=== PATIENT | male | born 1990 | race Caucasian/White ===

== ENCOUNTER 2017-08-05 19:05 | Emergency (ER) | payer BC ==
[~2017-08-05] VITALS: Ht 182.9 cm; Wt 89.0 kg
[2017-08-05 19:31] VITALS: BP 140/62; PULSE 92; RESP 18; TEMP 98.7; O2SAT 96
[2017-08-05] MEDS ORDERED: TEST1KIT IM (19:44)
--- NOTE | 2017-08-05 19:57 | PD ---
HPI Chief Complaint: Skin Problem Time Seen by Provider: 19:37 Travel History International Travel<30 days: No Contact w/Intl Traveler<30days: No Traveled to known affect area: No History of Present Illness HPI 27-year-old male presents to emergency Department with complaint of pain, swelling and redness to the right buttocks that has developed over the last 3-4 days after injecting testosterone 2-1/2 weeks ago. He said he reused his own dirty needle. Denies fever, vomiting. Has tried using Biofreeze for symptom management. Has not taken any medications to alleviate his symptoms. Pain is aggravated with palpation and sitting. Describes pain as a pressure. Rates pain 6/10. No known allergies. Has no medical complaints. No other modifying factors or associated signs and symptoms. PFSH Past Medical History Medical History: Denies Significant Hx Hx Anticoagulant Therapy: No Depression: Yes Cardiovascular Problems: No Chemotherapy: No Cerebrovascular Accident: No Diabetes: No Diminished Hearing: No Respiratory: No Immunizations Current: No Tetanus Vaccination: < 5 Years Influenza Vaccination: No Past Surgical History Ear Surgery: Yes (BILATERAL TUBES TO EARS A CHILD) Eye Surgery: Yes (BILATERAL EYES LAS2013) Hysterectomy: No Tonsillectomy: Yes Tympanostomy Tube: Yes Social History Alcohol Use: Yes ([facility]) Tobacco Use: Yes Substance Use: No Allergies-Medications (Allergen,Severity, Reaction): Coded Allergies: No Known Allergies (Unverified Adverse Reaction, Unknown, 08/05/17) Reported Meds & Prescriptions Reported Meds & Active Scripts Active Reported Testone Cik Inj (Testosterone Cypionate) 200 Mg/Ml Kit 300 Mg IM Q7DAYS Review of Systems Except as stated in HPI: all other systems reviewed are Neg Physical Exam Narrative GENERAL: Well-nourished, well-developed male patient, in no acute distress; afebrile, nontoxic-appearing SKIN: There is an indurated area to the right upper buttock which measures about 3.4 cm in diameter. It is nonfluctuant and there is no pointing or drainage. There is an area of mild erythema to the area. HEAD: Atraumatic. Normocephalic. EYES: Pupils equal and round. No scleral icterus. No injection or drainage. ENT: Mucosa pink and moist. Airway patent. NECK: Trachea midline. CARDIOVASCULAR: Regular rate. RESPIRATORY: No accessory muscle use. GASTROINTESTINAL: Flat. MUSCULOSKELETAL: No obvious deformities. No clubbing. No cyanosis. No edema. NEUROLOGICAL: Awake and alert. Oriented 3. No obvious cranial nerve deficits. Motor grossly within normal limits. Normal speech. PSYCHIATRIC: Appropriate mood and affect; insight and judgment normal. Data Data Last Documented VS Vital Signs Date Time Temp Pulse Resp B/P (MAP) Pulse Ox O2 Delivery O2 Flow Rate FiO2 08/05/17 19:45 (88) 08/05/17 19:31 98.7 92 18 96 Orders Orders Us Soft Tissue (08/05/17 ) MDM Medical Decision Making Medical Screen Exam Complete: Yes Emergency Medical Condition: Yes Medical Record Reviewed: Yes Differential Diagnosis Abscess, hematoma, cellulitis Narrative Course 27-year-old male with a palpable indurated area to the right upper buttocks. Dr. Iyer did a bedside ultrasound and there was no obvious abscess noted. Soft tissue of the right buttocks ordered. I offered the patient pain medication and he declined. 2055: AMA: The risks of leaving against medical advice without further evaluation treatment were discussed with the patient. These risks include cardiac dysfunction, cardiac dysrhythmia, possible heart attack, possible stroke or . The patient indicated understanding of these risks and appeared to have the capacity to make this decision. Diagnosis Primary Impression: Left against medical advice Disposition: 07 AGAINST MEDICAL ADVICE Izabella Martin Aug 05, 2017 19:57
--- NOTE | 2017-08-05 21:08 | PD ---
Physical Exam Date Seen by Provider: Aug 05, 2017 Time Seen by Provider: 21:07 Narrative Patient is a 27-year-old male who was initially evaluated by the mid-level provider. The patient had an area of swelling and minimal tenderness to the right gluteal area after injecting testosterone 2 weeks ago. He denies any fever, chills, or sweats. I was asked to perform a bedside ultrasound to evaluate for possible abscess. Data Data Last Documented VS Vital Signs Date Time Temp Pulse Resp B/P (MAP) Pulse Ox O2 Delivery O2 Flow Rate FiO2 08/05/17 19:45 (88) 08/05/17 19:31 98.7 92 18 96 Orders Orders Us Soft Tissue (08/05/17 ) MDM Medical Record Reviewed: Yes Supervised Visit with TARIK: Yes Differential Diagnosis Differential diagnosis includes hematoma, abscess, scar tissue, seroma, medication side effect. Narrative Course Eyes asked to perform a bedside ultrasound to evaluate for abscess over the right gluteal area after the patient injected testosterone 2 weeks ago. Bedside ultrasound a linear probe revealed no obvious abscess. Therefore, formal ultrasound was ordered. Procedures Procedure Narrative A bedside ultrasound was performed using a linear probe which revealed no obvious abscess. The patient tolerated the procedure without difficulty and there is no obvious complications. Diagnosis Primary Impression: Left against medical advice Additional Instruction: Warm compresses to the affected area Keep area clean and dry Ibuprofen or Tylenol as directed and as needed for pain and inflammation Follow-up with primary care provider Return to emergency department immediately with worsening of symptoms Disposition: 07 AGAINST MEDICAL ADVICE Condition: Stable Glenn Iyer MD Aug 05, 2017 21:08
--- NOTE | 2017-08-05 21:21 | RADRPT ---
EXAM DATE/TIME: 08/05/2017 20:16 [facility] COMPARISON: No previous studies available for comparison. INDICATIONS : Right buttock swelling and pain. MEDICAL HISTORY : Depression. SURGICAL HISTORY : Tonsillectomy. Left finger fracture repair. Bilateral lasik surgery. Bilateral tympanostomy tubes . ENCOUNTER: Initial ACUITY: 1 day PAIN SCORE: 5/10 LOCATION: Right buttock AREA EVALUATED: Right buttock. FINDINGS: Umaña scale and Doppler ultrasound imaging demonstrates mild subcutaneous edema. No fluid collection o r solid mass is identified. CONCLUSION: Subcutaneous edema. No fluid collection or abscess is identified. Vinny Lozano MD on August 05, 2017 at 21:18 Board Certified Radiologist. This report was verified electronically.
== END 2017-08-05 20:50 | disposition left against medical advice (07) ==
LOC: PHEFT 19:05
DX: R22.2 Localized swelling, mass and lump, trunk (principal); L53.9 Erythematous condition, unspecified; R23.4 Changes in skin texture; M79.1 Myalgia; Z72.0 Tobacco use; Z53.20 Procedure and treatment not carried out because of patient's decision for unspecified reasons
CPT/HCPCS: 76999; 99284

== ENCOUNTER 2017-08-24 17:26 | Emergency (ER) | payer BC ==
[~2017-08-24] VITALS: Ht 182.9 cm; Wt 90.4 kg
[~2017-08-24 17:26] MED LIST: TEST1KIT IM
[2017-08-24 17:34] VITALS: BP 142/63; PULSE 93; RESP 16; TEMP 98.2; O2SAT 99
[2017-08-24] MEDS ORDERED: CLIN300C5 PO (18:21)
--- NOTE | 2017-08-24 18:21 | PD ---
HPI Chief Complaint: Skin Problem Time Seen by Provider: 18:15 Travel History International Travel<30 days: No Contact w/Intl Traveler<30days: No Traveled to known affect area: No History of Present Illness HPI This is a 27-year-old male with a tender erythematous area to his right buttocks. He reports the area originated as a hard lump on his right gluteal at the site of where he injects steroids. The area just recently became red and increasingly more tender over the last week. He denies fever or chills. He denies history of MRSA. Symptom severity is moderate. No alleviating factors. PFSH Past Medical History Hx Anticoagulant Therapy: No Depression: Yes Cardiovascular Problems: No Chemotherapy: No Cerebrovascular Accident: No Diabetes: No Diminished Hearing: No Respiratory: No Immunizations Current: No Tetanus Vaccination: < 5 Years Influenza Vaccination: No Past Surgical History Ear Surgery: Yes (BILATERAL TUBES TO EARS A CHILD) Eye Surgery: Yes (BILATERAL EYES 2013) Hysterectomy: No Tonsillectomy: Yes Tympanostomy Tube: Yes Social History Alcohol Use: Yes (occ) Tobacco Use: Yes Substance Use: No Allergies-Medications (Allergen,Severity, Reaction): Coded Allergies: No Known Allergies (Unverified Adverse Reaction, Unknown, 08/24/17) Reported Meds & Prescriptions Reported Meds & Active Scripts Active Clindamycin (Clindamycin HCl) 300 Mg Cap 300 Mg PO Q6H 10 Days Reported Testone Cik Inj (Testosterone Cypionate) 200 Mg/Ml Kit 300 Mg IM Q7DAYS Review of Systems Except as stated in HPI: all other systems reviewed are Neg General / Constitutional: No: Fever Gastrointestinal: No: Abdominal Pain Physical Exam Narrative GENERAL: Alert, well-appearing male. In no distress. SKIN: Warm and dry. Right gluteal: 7 cm area of induration and erythema with approximately 1 CM area of fluctuance. HEAD: Normocephalic. EYES: No scleral icterus. No injection or drainage. NECK: Supple, trachea midline. No JVD or lymphadenopathy. CARDIOVASCULAR: Regular rate and rhythm without murmurs, gallops, or rubs. RESPIRATORY: Breath sounds equal bilaterally. No accessory muscle use. GASTROINTESTINAL: Abdomen soft, non-tender, nondistended. MUSCULOSKELETAL: No cyanosis, or edema. Data Data Last Documented VS Vital Signs Date Time Temp Pulse Resp B/P (MAP) Pulse Ox O2 Delivery O2 Flow Rate FiO2 08/24/17 17:34 98.2 93 16 142/63 (89) 99 Orders Orders Ed Discharge Order (08/24/17 18:22) MDM Medical Decision Making Medical Screen Exam Complete: Yes Emergency Medical Condition: Yes Differential Diagnosis Abscess, hematoma, cellulitis Narrative Course 27-year-old male with tender indurated area to the right gluteal times 4-6 weeks. Patient uses the same site to inject steroids. He has a 7 centimeter area of erythema and induration with small amount of fluctuance. He is afebrile. He is nontoxic appearing. Incision and drainage was performed. No pockets of purulence were found during I&D. Needle aspiration attempted which reveal no purulence. Ultrasound soft tissue of the area was offered for which patient declined. He will be treated for cellulitis. I believe the area of the hematoma with overlying this cellulitis. He was instructed to apply warm compresses and follow up for recheck in 2 days. He agrees to plan Diagnosis Primary Impression: Cellulitis and abscess of buttock Referrals: Primary Care Physician Additional Instructions: The antibiotics as prescribed. Apply warm compresses to the area several times per day. Take [id number] Motrin 800 mg every 6-8 hours as needed for pain. Follow up for recheck in 2 days. Scripts Clindamycin (Clindamycin) 300 Mg Cap 300 MG PO Q6H for Infection for 10 Days, #40 CAP 0 Refills Prov: Sue Shi 08/24/17 Disposition: 01 DISCHARGE HOME Condition: Stable Sue Shi Aug 24, 2017 18:21
== END 2017-08-24 18:30 | disposition home or self-care (01) ==
LOC: PHEFT 17:26
DX: L02.31 Cutaneous abscess of buttock (principal); L03.317 Cellulitis of buttock
CPT/HCPCS: 10060

== ENCOUNTER 2017-09-06 10:19 | Emergency (ER) | payer BC ==
[~2017-09-06] VITALS: Ht 182.9 cm; Wt 90.5 kg
[~2017-09-06 10:19] MED LIST changes: +CLIN300C5 PO
[2017-09-06 10:25] VITALS: BP 122/70; PULSE 81; RESP 16; TEMP 98.9; O2SAT 98
--- NOTE | 2017-09-06 10:46 | PD ---
HPI Chief Complaint: Skin Problem Time Seen by Provider: 10:32 Travel History International Travel<30 days: No Contact w/Intl Traveler<30days: No Traveled to known affect area: No History of Present Illness HPI 27-year-old male presents to emergency Department with recurrent cellulitis/abscess to the right upper lateral buttock. Patient was last seen on 08/24/2017, and I&D was attempted at that time. Patient was given clindamycin 300 mg 4 times a day which she has not been taking as directed until this point. He states he was at work today, and hit this area with severe pain. Continues to be indurated, erythematous, raised, and tender to palpation. He denies fever or chills. He denies drainage from the area. Pain is currently 8-9 out of 10 with palpation. He has no known drug allergies. PFSH Past Medical History Hx Anticoagulant Therapy: No Depression: Yes Cardiovascular Problems: No Chemotherapy: No Cerebrovascular Accident: No Diabetes: No Diminished Hearing: No Respiratory: No Immunizations Current: No Past Surgical History Ear Surgery: Yes (BILATERAL TUBES TO EARS A CHILD) Eye Surgery: Yes (BILATERAL EYES LASIK 2013) Hysterectomy: No Tonsillectomy: Yes Tympanostomy Tube: Yes Social History Alcohol Use: Yes ([facility]) Tobacco Use: Yes Substance Use: No Allergies-Medications (Allergen,Severity, Reaction): Coded Allergies: No Known Allergies (Unverified Adverse Reaction, Unknown, 09/06/17) Reported Meds & Prescriptions Reported Meds & Active Scripts Active Tramadol (Tramadol HCl) 50 Mg Tab 50 Mg PO Q6H PRN Ibuprofen 800 Mg Tab 800 Mg PO Q8H PRN Bactrim DS (Sulfamethoxazole-Trimethoprim) 800-160 Mg Tab 1 Tab PO BID 14 Days Keflex (Cephalexin) 500 Mg Capsule 500 Mg PO TID 14 Days Clindamycin (Clindamycin HCl) 300 Mg Cap 300 Mg PO Q6H 10 Days Reported Testone Cik Inj (Testosterone Cypionate) 200 Mg/Ml Kit 300 Mg IM Q7DAYS Review of Systems Except as stated in HPI: all other systems reviewed are Neg General / Constitutional: No: Fever, Chills Eyes: No: Visual changes HENT: No: Headaches Cardiovascular: No: Chest Pain or Discomfort Respiratory: No: Shortness of Breath Gastrointestinal: No: Abdominal Pain Genitourinary: No: Dysuria Musculoskeletal: No: Pain Skin: Positive Lesions, No Rash Neurologic: No: Weakness Psychiatric: No: Depression Endocrine: No: Polydipsia Hematologic/Lymphatic: No: Easy Bruising Physical Exam Narrative GENERAL: Patient appears in mild to moderate distress. Unable to sit on his right buttock. SKIN: Warm and dry. Normal color. Normal turgor. Patient has a 6 cm diameter well-demarcated erythematous fluctuant tender area right upper lateral buttock. The skin appears somewhat dry and flaky. There is no obvious pointing. HEAD: Atraumatic. Normocephalic. EYES: Pupils equal and round. No scleral icterus. No injection or drainage. ENT: No nasal bleeding or discharge. Mucous membranes pink and moist. Pharynx is clear. Airway is patent. NECK: Trachea midline. Supple and nontender. CARDIOVASCULAR: Regular rate and rhythm. RESPIRATORY: No accessory muscle use. Clear to auscultation. Breath sounds equal bilaterally. GASTROINTESTINAL: Abdomen soft, non-tender, nondistended. Hepatic and splenic margins not palpable. MUSCULOSKELETAL: Extremities without clubbing, cyanosis, or edema. No obvious deformities. Range of motion is full. No numbness or tingling. NEUROLOGICAL: Awake and alert. No obvious cranial nerve deficits. Motor grossly within normal limits. Five out of 5 muscle strength in the arms and legs. Normal speech. PSYCHIATRIC: Appropriate mood and affect; insight and judgment normal. Data Data Last Documented VS Vital Signs Date Time Temp Pulse Resp B/P (MAP) Pulse Ox O2 Delivery O2 Flow Rate FiO2 09/06/17 10:25 98.9 81 16 122/70 (87) 98 Orders Orders Us Soft Tissue (09/06/17 ) Ed Discharge Order (09/06/17 12:22) [facility] Medical Decision Making Medical Screen Exam Complete: Yes Emergency Medical Condition: Yes Differential Diagnosis Steroidal skin changes. Chronic cellulitis. Abscess. Narrative Course Ultrasound ordered of the right buttock. Ultrasound shows large cellulitic area without specific abscess formation. Patient is to take Bactrim DS twice a day 2 weeks. Patient also given Keflex 500 mg 3 times a day 2 weeks. Is given ibuprofen 800 mg 3 times daily with food #60. Patient should follow up with symptoms do not continue to improve or worsen as discussed. Diagnosis Primary Impression: Cellulitis of right buttock Referrals: [facility] Patient Instructions: Cellulitis (ED), General Instructions Additional Instructions: Ultrasound shows large cellulitic area without specific abscess formation. Patient is to take Bactrim DS twice a day 2 weeks. Patient also given Keflex 500 mg 3 times a day 2 weeks. Is given ibuprofen 800 mg 3 times daily with food #60. Patient should follow up with symptoms do not continue to improve or worsen as discussed. Med/Other Pt SpecificInfo: Prescription(s) given Scripts Tramadol (Tramadol) 50 Mg Tab 50 MG PO Q6H Y for PAIN, #12 TAB 0 Refills Prov: Claire Francis MD 09/06/17 Ibuprofen (Ibuprofen) 800 Mg Tab 800 MG PO Q8H Y for Pain/Inflammation, #60 TAB 0 Refills Prov: Claire Francis MD 09/06/17 Sulfamethoxazole-Trimethoprim (Bactrim DS) 800-160 Mg Tab 1 TAB PO BID for Infection for 14 Days, #28 TAB 0 Refills Prov: Claire Francis MD 09/06/17 Cephalexin (Keflex) 500 Mg Capsule 500 MG PO TID for Infection for 14 Days, CAP 0 Refills Prov: Claire Francis MD 09/06/17 Disposition: 01 DISCHARGE HOME Condition: Stable Rich Rodriguez Sep 06, 2017 10:46
--- NOTE | 2017-09-06 12:12 | RADRPT ---
EXAM DATE/TIME: 09/06/2017 11:38 [facility] COMPARISON: ULTRASOUND SOFT TISSUE, August 05, 2017, 20:16. INDICATIONS : Right buttocks abscess. MEDICAL HISTORY : Depression. SURGICAL HISTORY : Tonsillectomy. Left finger fracture repair. Bilateral lasik surgery. Bilateral tympanostomy tubes. ENCOUNTER: Subsequent ACUITY: 1 month PAIN SCORE: 9/10 LOCATION: Right buttocks. AREA EVALUATED: Right buttocks. FINDINGS: MASSES: None. FLUID COLLECTIONS: None. OTHER: Sonographic evaluation of the right buttock reveals diffuse soft tissue swelling. No organized fluid collection or abscess. CONCLUSION: Cellulitis right buttock. Cory Higgins MD on September 06, 2017 at 12:11 Board Certified Radiologist. This report was verified electronically.
[2017-09-06] MEDS ORDERED: CEPH-460 PO (12:21)
[2017-09-06] MEDS ORDERED: IBUP1TAB7 PO (12:21)
[2017-09-06] MEDS ORDERED: BACT800T5 PO (12:21)
[2017-09-06] MEDS ORDERED: TRAM50TA PO (12:29)
== END 2017-09-06 12:31 | disposition home or self-care (01) ==
LOC: PHEFT 10:19
DX: L03.317 Cellulitis of buttock (principal)
CPT/HCPCS: 76999; 99284

== ENCOUNTER 2017-09-18 13:22 | Emergency (ER) | payer BC ==
[~2017-09-18] VITALS: Ht 182.9 cm; Wt 87.7 kg
[~2017-09-18 13:22] MED LIST changes: +BACT800T5 PO; +CEPH-460 PO; +IBUP1TAB7 PO; +TRAM50TA PO
[2017-09-18 13:26] VITALS: BP 126/60; PULSE 96; RESP 16; TEMP 98.7; O2SAT 96
[2017-09-18] MEDS ORDERED: LIDOCAINE HCL 1% 50 ML VIAL INFIL ONE (14:00)
[2017-09-18] MEDS ORDERED: DOXY100C PO (14:20)
[2017-09-18] MEDS ORDERED: IBUP-232 PO (14:20)
--- NOTE | 2017-09-18 14:20 | PD ---
HPI Chief Complaint: Skin Problem Time Seen by Provider: 13:55 Travel History International Travel<30 days: No Contact w/Intl Traveler<30days: No Traveled to known affect area: No History of Present Illness HPI 27 years old male complains of painful lump on the right buttock area. Patient was seen in emergency room 3 weeks ago and was given prescription for clindamycin and then subsequently Bactrim DS and Keflex. Patient states that the infection localized into lump area on the right buttock since then. Patient denies any fever chills. Patient states the pain is sharp pain localized to the area of the buttock. Patient denies any pain radiation. PFSH Past Medical History Hx Anticoagulant Therapy: No Depression: Yes Cardiovascular Problems: No Chemotherapy: No Cerebrovascular Accident: No Diabetes: No Diminished Hearing: No Respiratory: No Immunizations Current: No Tetanus Vaccination: < 5 Years Influenza Vaccination: No Past Surgical History Ear Surgery: Yes (BILATERAL TUBES TO EARS A CHILD) Eye Surgery: Yes (BILATERAL EYES LASIK 2013) Hysterectomy: No Tonsillectomy: Yes Tympanostomy Tube: Yes Social History Alcohol Use: Yes (occ) Tobacco Use: Yes Substance Use: Yes (testonsterone) Allergies-Medications (Allergen,Severity, Reaction): Coded Allergies: No Known Allergies (Unverified Adverse Reaction, Unknown, 09/18/17) Reported Meds & Prescriptions Reported Meds & Active Scripts Active Keflex (Cephalexin) 500 Mg Capsule 500 Mg PO TID 14 Days Clindamycin (Clindamycin HCl) 300 Mg Cap 300 Mg PO Q6H 10 Days Review of Systems General / Constitutional: No: Fever Eyes: No: Visual changes HENT: No: Headaches Cardiovascular: No: Chest Pain or Discomfort Respiratory: No: Shortness of Breath Gastrointestinal: No: Abdominal Pain Genitourinary: No: Dysuria Musculoskeletal: No: Pain Skin: No Rash Neurologic: No: Weakness Psychiatric: No: Depression Endocrine: No: Polydipsia Hematologic/Lymphatic: No: Easy Bruising Physical Exam Narrative GENERAL: Well-nourished, well-developed patient. SKIN: Focused skin assessment warm/dry. HEAD: Normocephalic. EYES: No scleral icterus. No injection or drainage. NECK: Supple, trachea midline. No JVD or lymphadenopathy. CARDIOVASCULAR: Regular rate and rhythm without murmurs, gallops, or rubs. RESPIRATORY: Breath sounds equal bilaterally. No accessory muscle use. GASTROINTESTINAL: Abdomen soft, non-tender, nondistended. MUSCULOSKELETAL: No cyanosis, or edema. BACK: Nontender without obvious deformity. No CVA tenderness. Patient have a soft tissue mass with induration on the right buttock area. Mild tenderness on palpation. No heat noted. Data Data Last Documented VS Vital Signs Date Time Temp Pulse Resp B/P (MAP) Pulse Ox O2 Delivery O2 Flow Rate FiO2 09/18/17 13:40 20 09/18/17 13:26 98.7 96 126/60 (82) 96 Orders Orders Lidocaine 1% Inj (50 Ml) (Xylocaine 1% I (09/18/17 14:00) Wound Culture And Gram Stain (09/18/17 14:13) [facility] Medical Decision Making Medical Screen Exam Complete: Yes Emergency Medical Condition: Yes Differential Diagnosis Right buttock abscess, Narrative Course 37 years old male with right buttock abscess. Patient was treated with antibiotics 3 weeks ago. Procedures Procedure Narrative 1% lidocaine local anesthesia. Betadine wash. Small incision was made on the right buttock with #11 scalpel. A moderate amount of yellow fluid obtained. Wound culture obtained. 0.5 inch packing applied. Dressing applied. Diagnosis Primary Impression: Abscess of buttock, right Patient Instructions: General Instructions Additional Instructions: Wound care daily. Remove packing in 2 days. Take doxycycline as directed. Follow-up with personal physician. Return if worse. Med/Other Pt SpecificInfo: Prescription(s) given Scripts Ibuprofen (Ibuprofen) 600 Mg Tab 600 MG PO TID for Pain, #60 TAB 0 Refills Prov: Jeremie Serna MD 09/18/17 Doxycycline Hyclate (Doxycycline Hyclate) 100 Mg Cap 100 MG PO BID for Infection, #20 CAP 0 Refills Prov: Jeremie Serna MD 09/18/17 Disposition: 01 DISCHARGE HOME Condition: Stable Jeremie Serna MD Sep 18, 2017 14:20
== END 2017-09-18 14:40 | disposition home or self-care (01) ==
LOC: PHEFT 13:22
DX: L02.31 Cutaneous abscess of buttock (principal)
CPT/HCPCS: 10061; 87070; 87205